=== PATIENT | female | born 1990 | race American Indian/Alaskan Native ===

== ENCOUNTER 2018-05-16 14:55 | Emergency (ER) | payer SELFPAY ==
[2018-05-16 15:02] VITALS: BP 138/88
--- NOTE | 2018-05-16 17:34 | Emergency Department Report ---
- General Chief Complaint: Upper Respiratory Infection Stated Complaint: FLU SYMPTOMS Time Seen by Provider: 05/16/18 17:27 Source: patient Mode of arrival: Ambulatory Limitations: No Limitations - History of Present Illness MD Complaint: cough (with chest pressure. productive cough for 1-2 days. ), rhinorrhea, nasal congestion -: Sudden Severity: mild Consistency: constant Worsens With: nothing Associated Symptoms: rhinorrhea, nasal congestion, sore throat, cough, chest pain. denies: vomiting, diarrhea, confusion, weight loss, epistaxis - Related Data Previous Rx's Medication Instructions Recorded Last Taken Type ALBUTEROL Inhaler (OR & NICU) 1 puff IH Q4-6H PRN #1 inha 05/16/18 Unknown Rx [ProAir HFA Inhaler] Ketorolac [Toradol] 10 mg PO Q6H PRN #15 tablet 05/16/18 Unknown Rx guaiFENesin/CODEINE [Robitussin AC] 5 ml PO Q6H PRN #120 ml 05/16/18 Unknown Rx predniSONE [Deltasone] 20 mg PO QDAY #5 tab 05/16/18 Unknown Rx Allergies Allergy/AdvReac Type Severity Reaction Status Date / Time No Known Allergies Allergy Unverified 05/16/18 15:02 ED Review of Systems ROS: Stated complaint: FLU SYMPTOMS Other details as noted in HPI ED Past Medical Hx - Past Medical History Previous Medical History?: No - Surgical History Past Surgical History?: No - Social History Smoking Status: Current Every Day Smoker Substance Use Type: None - Medications Home Medications: Home Medications Medication Instructions Recorded Confirmed Last Taken Type ALBUTEROL Inhaler (OR & NICU) 1 puff IH Q4-6H PRN #1 inha 05/16/18 Unknown Rx [ProAir HFA Inhaler] Ketorolac [Toradol] 10 mg PO Q6H PRN #15 tablet 05/16/18 Unknown Rx guaiFENesin/CODEINE [Robitussin AC] 5 ml PO Q6H PRN #120 ml 05/16/18 Unknown Rx predniSONE [Deltasone] 20 mg PO QDAY #5 tab 05/16/18 Unknown Rx ED Physical Exam - General Limitations: No Limitations ED Course Vital Signs 05/16/18 15:00 Temperature 98.5 F Pulse Rate 103 H Respiratory 18 Rate Blood Pressure 138/88 O2 Sat by Pulse 100 Oximetry Critical care attestation.: If time is entered above; I have spent that time in minutes in the direct care of this critically ill patient, excluding procedure time. ED Disposition Clinical Impression: Bronchitis Disposition: DC-01 TO HOME OR SELFCARE Is pt being admited?: No Does the pt Need Aspirin: No Condition: Stable Instructions: Chronic Bronchitis (ED), Acute Bronchitis (ED) Prescriptions: ALBUTEROL Inhaler (OR & NICU) [ProAir HFA Inhaler] 1 puff IH Q4-6H PRN #1 inha PRN Reason: Cough guaiFENesin/CODEINE [Robitussin AC] 5 ml PO Q6H PRN #120 ml PRN Reason: Cough Ketorolac [Toradol] 10 mg PO Q6H PRN #15 tablet PRN Reason: Pain predniSONE [Deltasone] 20 mg PO QDAY #5 tab Referrals: PRIMARY CARE, [Primary Care Provider] - 3-5 Days [facility] [Provider Group] - 3-5 Days
--- NOTE | 2018-05-16 18:45 | XRay Report ---
FINAL REPORT EXAM: XR CHEST ROUTINE 2V HISTORY: productive cough TECHNIQUE: Two views of the chest Comparison: None FINDINGS: Normal heart size. Mild bronchial wall thickening to the lower lobes and in the perihilar distribution noted on the late ral projection. No definite focal infiltrate. No effusion. Imaged axial skeleton is unremarkable. IMPRESSION: Bronchial wall thickening compatible with bronchitis. No definite pneumonia.
== END 2018-05-16 19:56 | disposition home or self-care (01) ==
LOC: ED 14:55
DX: J40 Bronchitis, not specified as acute or chronic (principal); F17.200 Nicotine dependence, unspecified, uncomplicated
CPT/HCPCS: 71046; 93005; 93010; 99283

== ENCOUNTER 2018-07-17 02:38 | Emergency (ER) | payer OTHER ==
[2018-07-17] MEDS ORDERED: SOLU-Medrol IV ONE (03:05)
--- NOTE | 2018-07-17 03:13 | Emergency Department Report ---
ED Allergic Reaction HPI - General Chief complaint: Allergic Reaction Stated complaint: LIPS SWOLLEN Time Seen by Provider: 07/17/18 02:47 Source: patient Mode of arrival: Ambulatory Limitations: No Limitations - History of Present Illness Initial Comments: 27-year-old female presents to ED with report of swelling so that since yesterday. Patient reports itching and burning and lesions present. States she took Benadryl prior to ED arrival. She reports history of cold sores in the past. Also states she ate an entire bag of oranges over the past day and is not sure if this is contributed. Patient denies shortness of breath, diffuse rash or itching. MD Complaint: allergic reaction -: Last night Exposure: unknown, food Symptoms: lip swelling Severity: mild Treatment Prior to Arrival: benadryl Previous Allergy History: none - Related Data Previous Rx's Medication Instructions Recorded Last Taken Type ALBUTEROL Inhaler (OR & NICU) 1 puff IH Q4-6H PRN #1 inha 05/16/18 Unknown Rx [ProAir HFA Inhaler] Ketorolac [Toradol] 10 mg PO Q6H PRN #15 tablet 05/16/18 Unknown Rx guaiFENesin/CODEINE [Robitussin AC] 5 ml PO Q6H PRN #120 ml 05/16/18 Unknown Rx predniSONE [Deltasone] 20 mg PO QDAY #5 tab 05/16/18 Unknown Rx predniSONE [Prednisone] 50 mg PO DAILY #5 tablet 07/17/18 Unknown Rx Allergies Allergy/AdvReac Type Severity Reaction Status Date / Time No Known Allergies Allergy Verified 07/17/18 02:41 ED Review of Systems ROS: Stated complaint: LIPS SWOLLEN Other details as noted in HPI Comment: All other systems reviewed and negative Respiratory: denies: shortness of breath, stridor Skin: rash, pruritus ED Past Medical Hx - Past Medical History Previous Medical History?: No - Surgical History Past Surgical History?: No - Social History Smoking Status: Current Every Day Smoker Substance Use Type: None - Medications Home Medications: Home Medications Medication Instructions Recorded Confirmed Last Taken Type ALBUTEROL Inhaler (OR & NICU) 1 puff IH Q4-6H PRN #1 inha 05/16/18 Unknown Rx [ProAir HFA Inhaler] Ketorolac [Toradol] 10 mg PO Q6H PRN #15 tablet 05/16/18 Unknown Rx guaiFENesin/CODEINE [Robitussin AC] 5 ml PO Q6H PRN #120 ml 05/16/18 Unknown Rx predniSONE [Deltasone] 20 mg PO QDAY #5 tab 05/16/18 Unknown Rx predniSONE [Prednisone] 50 mg PO DAILY #5 tablet 07/17/18 Unknown Rx ED Physical Exam - General Limitations: No Limitations General appearance: alert, in no apparent distress - Head Head exam: Present: atraumatic, normocephalic - Eye Eye exam: Present: normal appearance - ENT ENT exam: Present: normal orophraynx, mucous membranes moist, other (no swelling present to lips or tongue; pt has lesions to lips) - Neck Neck exam: Present: normal inspection - Respiratory Respiratory exam: Present: normal lung sounds bilaterally. Absent: respiratory distress, stridor - Cardiovascular Cardiovascular Exam: Present: regular rate, normal rhythm - GI/Abdominal GI/Abdominal exam: Present: soft. Absent: distended - Extremities Exam Extremities exam: Present: normal inspection - Back Exam Back exam: Present: normal inspection - Neurological Exam Neurological exam: Present: alert, oriented X3 - Psychiatric Psychiatric exam: Present: normal affect, normal mood - Skin Skin exam: Present: warm, dry, intact, normal color ED Course Vital Signs 07/17/18 07/17/18 02:38 03:04 Temperature 98 F Pulse Rate 102 H Respiratory 18 16 Rate Blood Pressure 141/99 O2 Sat by Pulse 100 100 Oximetry Critical care attestation.: If time is entered above; I have spent that time in minutes in the direct care of this critically ill patient, excluding procedure time. ED Disposition Clinical Impression: Dermatitis Disposition: DC-01 TO HOME OR SELFCARE Is pt being admited?: No Condition: Stable Instructions: Contact Dermatitis (ED) Prescriptions: predniSONE [Prednisone] 50 mg PO DAILY #5 tablet Referrals: [facility] [Provider Group] - 3-5 Days
[2018-07-17 03:30] VITALS: BP 123/84
== END 2018-07-17 03:38 | disposition home or self-care (01) ==
LOC: ED 02:38
DX: L30.8 Other specified dermatitis (principal); F17.200 Nicotine dependence, unspecified, uncomplicated
CPT/HCPCS: 96374; 99282; J2930